=== PATIENT | female | born 1955 | race Caucasian/White ===

== ENCOUNTER → 2016-10-10 | Outpatient (CLI) | payer OTHER ==
[~2016-10-10] MED LIST: B-COCAP2 PO; CALCTAB5 PO; EFF375 PO; METO50TA7 PO; MULT-506 PO; OMEG10007 PO; PROBIOTIC; SIMV40TA2 PO; XNX25 PO; [UNRECOGNIZED DRUG - CODE] PO; vitamin D
--- NOTE | 2016-10-10 13:29 | MAMMOGRAPHY REPORT ---
UNILATERAL LEFT DIGITAL DIAGNOSTIC MAMMOGRAM TOMOSYNTHESIS WITH CAD AND TARGETED LEFT ULTRASOUND: CLINICAL HISTORY: 61-year-old woman with a personal history of right breast cancer status post lumpe ctomy and radiation presents with a new visible lesion along the areola of the left breast that she first noticed 3-4 days ago. TECHNIQUE: Left breast tomosynthesis in addition to standard 2D mammography was performed. Current jose staples was also evaluated with a Computer Aided Detection (CAD) system. COMPARISON: Comparison is made to exams dated: 07/31/2016 mammogram, 07/28/2014 mammogram, 07/29/20 15 mammogram, 03/09/2014 mammogram, 09/08/2013 ultrasound, and 04/03/2012 mammogram - [facility]. BREAST COMPOSITION: The tissue of the left breast is heterogeneously dense, which may obscure small masses. FINDINGS: A triangular skin palpable marker overlies the 1:00 periareolar left breast denoting the lesion pointed out by the patient. The breast parenchymal pattern is similar to prior mammograms. No new suspicious mass, architectural distortion or cluster of microcalcifications is seen. On visual inspection, there is a 2-3 mm raised minimally erythematous lesion on the areola of the 1: 00 axis of the left breast. On ultrasound, there is subtle focal skin thickening and a rounded hypo echoic area within the dermis overlying the visible lesion, measuring approximately 3.8 mm in diamet er. This could represent a very early epidermal inclusion cyst. It appears to be confined to the d ermis and there is no deeper lesion within the visualized breast parenchyma. There is no evidence o f a drainable fluid collection, generalized cellulitis/mastitis or a suspicious solid or cystic mass . IMPRESSION: ACR BI-RADS CATEGORY 2: BENIGN, TARGETED ULTRASOUND ACR BI-RADS CATEGORY 2: BENIGN 1. Stable mammographic appearance of the left breast. 2. Subtle focal skin thickening and hypoechoic lesion measuring 3.8 mm within the dermis of the 1:0 0 periareolar left breast, correlating with the visible skin lesion pointed out by the patient. Thi s could represent a very early epidermal inclusion cyst. There is no definite evidence of celluliti s/mastitis. No drainable fluid collection or suspicious breast mass. Clinical follow-up is recomme nded and conservative management with hot compresses and NSAIDs may be useful. If the lesion progre sses or becomes increasingly red or tender, repeat targeted ultrasound may be useful. 3. Otherwise, recommend annual bilateral mammography in July 2017. These results and recommendations were discussed with the patient at the time of the exam. Approximately 10% of breast cancers are not detected with mammography. A negative mammographic repor t should not delay biopsy if a clinically suggestive mass is present. Nadine Okeefe M.D. ay/:10/10/2016 09:11:33 Department Manager: Rodrigue OCHOA(Chin)(M), [facility] letter sent: Normal 1/2 BI-RADS Code: ACR BI-RADS Category 2: Benign Ultrasound BI-RADS: ACR BI-RADS Category 2: Benign
== END | disposition home or self-care (01) ==
LOC: C.MAMM 08:29
PROVIDERS: ATTEND Obstetrics & Gynecology
DX: R92.8 Other abnormal and inconclusive findings on diagnostic imaging of breast (principal)

== ENCOUNTER → 2016-10-16 | Outpatient (CLI) | payer OTHER ==
--- NOTE | 2016-10-16 10:52 | Discharge Instructions ---
Discharge Instructions Procedure Procedure Date: Oct 16, 2016. Reason for visit: Goiter *To Be With *. Discharge Discharge Date: Oct 16, 2016. Discharge Diagnosis: s/p bilateral thyroid nodule FNA Instructions Activity Recommendations: No limitations Return to School/Work: no limitations Recommended Home Diet: No Limitations Provider Instructions: ACTIVITY RECOMMENDATIONS: * Rest today. * Resume regular activity in one day. MEDICATIONS: * May take Tylenol or Ibuprofen as needed for pain. DIET: * Resume previous diet. SPECIAL CARE INSTRUCTIONS: Call your doctor if: * Temperature above 101 degrees F. * Pain not relieved by pain medicine ordered. * Increased drainage or redness from incision. * Notify your doctor with any questions or concerns. Call your doctor or go to the nearest Emergency Department if you experience: * Increased chest pain or shortness of breath. FOLLOW UP VISIT: Follow-up with Referring Physician as scheduled. Allergies Coded Allergies: No Known Allergies (Unverified , 09/23/10) Quentin Mendoza Recommendations: Call your doctor if: * Temperature above 101 degrees * Pain not relieved by pain medicine ordered * There is increased drainage or redness from any incision * You have any unanswered questions or concerns. Your Doctors Instructions noted above were prepared by provider Ahmet Flores. Patient Signature Section: Patient Instructions Signature Page Leah Garvin Patient (or Guardian) Signature/Date: I have read and understand the instructions given to me by my caregivers. Caregiver/RN/Doctor Signature/Date: The above-named patient and/or guardian has received patient instructions on this date. + Original Patient Signature Page (only) stays with chart. Please make copy for patient.
--- NOTE | 2016-10-16 11:18 | DIAGNOSTIC IMAGING REPORT ---
ULTRASOUND GUIDED FINE NEEDLE ASPIRATION OF BILATERAL THYROID NODULES CLINICAL HISTORY: Nontoxic multinodular goiter. COMPARISON STUDY: Thyroid ultrasound June 19, 2016. PROCEDURE: The procedure, risks and benefits were discussed with the patient. The patient agreed to the procedure and informed written consent was obtained. The procedure was performed by Dr. Flores following a timeout. Sonography of the thyroid gland again demonstrated the 2.1 cm isoechoic nodule within the lower pole of the right thyroid lobe and the dominant 3.4 cm left lobe thyroid nodule. These 2 nodules were targeted for fine needle aspiration. Skin of the neck was prepped and draped in sterile fashion and local anesthesia was achieved with 1% lidocaine. Under direct ultrasound guidance, 2 25-gauge fine needle aspirations of the right lobe nodule were performed. The samples were deemed preliminarily adequate by pathology. 2 fine needle aspirations within the left lobe nodule were then performed. Adequacy was borderline and therefore one additional pass within the left lobe nodule was performed for a total of 3 passes within this nodule. The patient tolerated the procedure well and no immediate complications were evident. IMPRESSION: Ultrasound guided fine needle aspiration of bilateral thyroid nodules. Electronically signed by: Ahmet Flores M.D. 10/16/2016 11:16 AM Dictated Date/Time: 10/16/2016 11:14 AM
== END | disposition home or self-care (01) ==
LOC: C.ULTR 09:46
DX: E04.2 Nontoxic multinodular goiter (principal)

== ENCOUNTER → 2016-12-01 | Outpatient (CLI) | payer OTHER | END | disposition home or self-care (01) | LOC: C.LABBC 09:55 | PROVIDERS: ATTEND Internal Medicine | DX: Z11.59 Encounter for screening for other viral diseases (principal) ==

== ENCOUNTER → 2017-06-19 | Outpatient (CLI) | payer OTHER ==
--- NOTE | 2017-06-19 09:29 | DIAGNOSTIC IMAGING REPORT ---
ULTRASOUND OF THE THYROID GLAND CLINICAL HISTORY: Nontoxic multinodular goiter. COMPARISON STUDY: Thyroid ultrasound dated 06/19/2016. TECHNIQUE: Real-time, grayscale, and color flow sonography of the thyroid gland is performed utilizing a high-frequency linear transducer. Images are reviewed in the transverse and longitudinal planes. FINDINGS: Right lobe: The right lobe of the thyroid gland is normal in size and slightly heterogeneous in echotexture, measuring 4.8 x 2.1 x 1.6 cm. An isoechoic solid nodule with a small cystic component in the lower pole measures 2.3 x 1.5 x 1.6 cm (previously measured 2.1 x 1.5 x 1.4 cm). Internal vascularity is shown color imaging. Left lobe: The left lobe of the thyroid gland is mildly enlarged and heterogeneous in echotexture, measuring 5.8 x 3.1 x 4.0 cm. A hypoechoic solid nodule in the mid to lower pole measures 2.9 x 3.4 x 3.3 cm (previously measured 2.8 x 3.4 x 3.4 cm). Internal vascularity shown on color imaging. Isthmus: The thyroid isthmus is mildly thickened and heterogeneous measuring 0.6 cm in AP diameter. IMPRESSION: Bilateral thyroid nodules, overall similar in appearance to the 06/19/2016 examination. Continued sonographic follow-up is recommended. Electronically signed by: Maycol Peres M.D. 06/19/2017 9:28 AM Dictated Date/Time: 06/19/2017 9:24 AM
== END | disposition home or self-care (01) ==
LOC: C.ULTR 08:41
PROVIDERS: ATTEND Physician Assistant
DX: E04.2 Nontoxic multinodular goiter (principal)

== ENCOUNTER → 2017-08-01 | Outpatient (CLI) | payer OTHER ==
--- NOTE | 2017-08-03 08:12 | MAMMOGRAPHY REPORT ---
BILATERAL DIGITAL SCREENING MAMMOGRAM TOMOSYNTHESIS WITH CAD: 08/01/2017 CLINICAL HISTORY: Asymptomatic. Personal history of breast cancer. TECHNIQUE: Breast tomosynthesis in addition to standard 2D mammography was performed. Current study was also evaluated with a Computer Aided Detection (CAD) system. COMPARISON: Comparison is made to exams dated: 10/10/2016 ultrasound, 10/10/2016 mammogram, 07/31/2016 mammogram, 07/29/2015 mammogram, 07/28/2014 mammogram, and 09/13/2012 mammogram - [facility]. BREAST COMPOSITION: The tissue of both breasts is heterogeneously dense, which may obscure small mas ses. FINDINGS: There are stable post surgical changes in both breasts. 2 surgical clips are seen in the f ar posterior superior right breast on the MLO view denoting the lumpectomy site. There are a few pun ctate microcalcifications, stable in the right breast. No new suspicious mass, architectural distort ion or cluster of microcalcifications is seen. IMPRESSION: ACR BI-RADS CATEGORY 1: NEGATIVE There is no mammographic evidence of malignancy. A 1 year screening mammogram is recommended. The pa tient will receive written notification of the results. Approximately 10% of breast cancers are not detected with mammography. A negative mammographic report should not delay biopsy if a clinically suggestive mass is present. Nadine Okeefe M.D. ay/:08/01/2017 16:10:51 Monitoring Manager: Dana Aguilar, [facility] letter sent: Normal 1/2 BI-RADS Code: ACR BI-RADS Category 1: Negative
== END | disposition home or self-care (01) ==
LOC: C.MAMM 08:40
PROVIDERS: ATTEND Obstetrics & Gynecology
DX: Z12.31 Encounter for screening mammogram for malignant neoplasm of breast (principal)

== ENCOUNTER → 2017-10-19 | Outpatient (CLI) | payer OTHER ==
[~2017-10-19] MED LIST changes: -METO50TA7 PO; +METO50TA8 PO
[2017-10-19 11:00] LABS: BASO % 0.8 %; BASO ABS # 0.04 K/uL (0-0.2); EOS % 3.6 %; EOS ABS # 0.18 K/uL (0-0.5); HEMATOCRIT 40.9 % (37-47); HEMOGLOBIN 13.6 g/dL (12.0-16.0); IG# 0.01 K/uL (0.00-0.02); LYMPH % 37.6 %; LYMPH ABS # 1.89 K/uL (1.2-3.4); MEAN CELL VOLUME 97.1 fL (80-100); MEAN CORPUSCULAR HEMOGLOBIN 32.3 pg (25-34); MEAN CORPUSCULAR HGB CONC 33.3 g/dl (32-36); NEUT % 47.8 %; PLATELET COUNT 302 K/uL (130-400); RED CELL DISTRIBUTION WIDTH SD 45.7 fL (36.4-46.3); WHITE BLOOD COUNT 5.02 K/uL (4.8-10.8)
[2017-10-19 11:15] LABS: ALBUMIN 3.9 gm/dl (3.4-5.0); ALT/SGPT 60 U/L (12-78); BLOOD UREA NITROGEN 12 mg/dl (7-18); CALCIUM 9.3 mg/dl (8.5-10.1); CARBON DIOXIDE 25 mmol/L (21-32); CHOLESTEROL 245 mg/dl (0-200); CREATININE 0.72 mg/dl (0.60-1.20); GLUCOSE 132 mg/dl (70-99); POTASSIUM 3.8 mmol/L (3.5-5.1); SODIUM 137 mmol/L (136-145)
[2017-10-19 11:37] LABS: ALKALINE PHOSPHATASE 69 U/L (45-117); AST/SGOT 41 U/L (15-37); TOTAL PROTEIN 7.5 gm/dl (6.4-8.2)
[2017-10-19 11:42] LABS: HEMOGLOBIN A1C 5.5 % (4.5-5.6)
== END | disposition home or self-care (01) ==
LOC: C.LABBC 07:40
PROVIDERS: ATTEND Internal Medicine
DX: I10 Essential (primary) hypertension (principal); E78.5 Hyperlipidemia, unspecified; E78.1 Pure hyperglyceridemia; E04.2 Nontoxic multinodular goiter; R73.01 Impaired fasting glucose; C50.919 Malignant neoplasm of unspecified site of unspecified female breast